=== PATIENT | male | born 1935 | race Caucasian/White ===

== ENCOUNTER 2016-09-06 19:43 | Emergency (ER) | payer MEDICARE, OTHER ==
[~2016-09-06 19:43] MED LIST: EPINEPHrine 1 MG/ML (MDV) 30 ML VIAL ONE; SODIUM CHLORIDE 0.9% (PF) 10 ML VIAL ONE
[2016-09-06 19:49] LABS: Glucose,Whole Blood 272 mg/dL (75-99)
--- NOTE | 2016-09-06 20:04 | ED ---
CPR HPI - General Stated Complaint: Cardiac Arrest Time Seen by Provider: 09/06/16 19:43 Source: EMS Mode of arrival: EMS Limitations: physical limitation - History of Present Illness Initial Comments: This patient is a 80-year-old man brought by EMS after he had what sounds like an arrest at home. The patient has history of COPD and is on home oxygen. He became unresponsive and family phoned EMS. EMS arrived to find the patient without any vital signs. There were no spontaneous inspiratory efforts. The patient had no detectable pulse or blood pressure. He was asystolic on the attached to cardiac rn. They instituted ACLS procedure. The patient had IV line, intubation, CPR, epinephrine, and they did find the patient developed ventricular fibrillation and they also provided defibrillation. There was no ROSC. Patient is of course not able to give any history. MD Complaint: found unresponsive (Already) Place: home Bystander CPR Performed: No Initial Findings in the Field: unresponsive, no pulse, other rhythm (asystole) ROSC in the Field: No Associated Injuries: No Treatments Prior to Arrival: intubation, chest compressions, defibrillated shocks #, epinephrine mgs #, sodium bicarbonate - Related Data Home Medications Medication Instructions Recorded Confirmed Albuterol Inhaler [Ventolin Hfa 2 puff INHALATION RT-QID PRN 11/26/14 02/26/16 Inhaler] Albuterol Nebulized [Ventolin 2.5 mg INHALATION RT-Q6H PRN 02/26/16 02/26/16 Nebulized] Amiodarone [Cordarone] 200 mg PO DAILY 02/26/16 02/26/16 Ensure 1 can PO BID-W/MEALS 02/26/16 02/26/16 Tiotropium [place] [Spiriva 2 puff INHALATION RT-DAILY 02/26/16 02/26/16 Respimat] Previous Rx's Medication Instructions Recorded Aspirin EC [Ecotrin Low Dose] 81 mg PO DAILY #30 tablet. 12/02/14 Furosemide [Lasix] 40 mg PO DAILY #30 tab 12/02/14 Lisinopril [Zestril] 2.5 mg PO DAILY #30 tab 12/02/14 Metoprolol Tartrate [Lopressor] 50 mg PO BID #60 tab 12/02/14 Apixaban [Eliquis] 5 mg PO BID #30 tab 02/29/16 HYDROcodone/APAP 7.5-325MG [[place] 1 tab PO Q6HR PRN #100 tab 02/29/16 7.5-325] Ipratropium-Albuterol Nebulize 3 ml INHALATION RT-QID ampul.neb 02/29/16 [Duoneb 0.5 mg-3 mg/3 ml Soln] Levofloxacin [Levaquin] 750 mg PO DAILY@1500 #5 tab 02/29/16 Potassium Chloride ER [K-Dur 20] 20 meq PO DAILY tab.er.prt 02/29/16 guaiFENesin [Mucinex] 600 mg PO Q12HR tablet.er 02/29/16 predniSONE 0 mg PO DIRECTED #40 tab 02/29/16 Allergies Allergy/AdvReac Type Severity Reaction Status Date / Time Penicillins Allergy Unknown Verified 02/26/16 16:20 Review of Systems ROS Statement: Those systems with pertinent positive or pertinent negative responses have been documented in the HPI. ROS Other: All systems not noted in ROS Statement are negative. Limitations: ROS unobtainable due to patients medical condition Past Medical History Past Medical History: Atrial Fibrillation, Coronary Artery Disease (CAD), Heart Failure (With a baseline ejection fraction of 30-35% and moderate degree of concentric left ventricular hypertrophy), COPD, Hyperlipidemia, Hypertension History of Any Multi-Drug Resistant Organisms: None Reported Past Surgical History: Adenoidectomy, Hernia Repair, Orthopedic Surgery, Tonsillectomy Additional Past Surgical History / Comment(s): Bilateral cataract surgery, tonsillectomy and adenoidectomy, ACDF, colonoscopy about 3 years ago. Past Anesthesia/Blood Transfusion Reactions: No Reported Reaction Past Psychological History: No Psychological Hx Reported Smoking Status: Current every day smoker (Patient used to smoke about pack every day currently smokes about half a pack every day .) Past Alcohol Use History: None Reported Past Drug Use History: None Reported - Past Family History Mother Family Medical History: Cancer (Mother at age 64 from bladder cancer.) Father Family Medical History: Myocardial Infarction ([place]) (Father at age of 71 from myocardial infarction.) Brother(s) Family Medical History: CVA/TIA (Patient had 8 brothers one of them from significant other one at age of 61.) Sister(s) Family Medical History: No Reported History (Patient has 2 sisters no major medical problems) Son(s) Family Medical History: No Reported History (Patient has 6 sons no major medical problems) Daughter(s) Family Medical History: No Reported History (Patient has 4 daughters no major medical problems) General Exam Limitations: physical limitation (Unresponsive) General appearance: other (Unresponsive) Head exam: Present: atraumatic, normocephalic Eye exam: Present: other (Pupils are midrange and fixed.) ENT exam: Present: other (There is an endotracheal tube present with bite block) Neck exam: Present: normal inspection, other (No palpable deformity or step-off) Respiratory exam: Present: rhonchi, other (There are few rhonchi with bagging through the endotracheal tube. There is no spontaneous inspiratory effort.) Cardiovascular Exam: Present: other (No detectable PMI. No palpable pulses. No detectable blood pressure. No cardiac sounds) GI/Abdominal exam: Present: soft. Absent: distended, tenderness, guarding, rebound Extremities exam: Present: other (No evidence of trauma. No obvious deformity) . Absent: pedal edema Back exam: Present: normal inspection, other (No obvious deformity or step-off) Neurological exam: Present: other (GCS is 3. No neurologic signs of life. No cranial nerve reflexes are deep tendon reflexes) Skin exam: Present: mottled. Absent: rash, diaphoretic, erythema, petechiae, pallor Course Vital Signs 09/06/16 20:12 Pulse Rate [ 0 L Femoral] Respiratory 12 Rate - Reevaluation(s) Reevaluation #1: 09/06/16 21:54 I discussed the case with Dr. ray marie, who will sign the certificate. I discussed the case with the medical physicist who will release the patient's body for disposition. The time of was 8:01 PM. Medical Decision Making - Medical Decision Making Patient is a 80-year-old man with history of COPD brought after he had what sounds like cardiopulmonary arrest at home. We did continue the ACLS protocol. After continuing the CPR for a period of time did note that there was subcutaneous emphysema developing particularly along the right side of the patient's neck. I did perform a needle thoracostomy initially on the right which did result in a small amount of air release, and then on the left which resulted in what appeared to be pleural fluid drainage. There was no change in the monitor appearance. ACLS protocol was continued see the - Lab Data Lab Results 09/06/16 Range/Units 19:46 POC Glucose (mg/dL) 272 H (75-99) mg/dL POC Glu Product Marketer ID Hui Jacome Critical Care Time Critical Care Time: Yes (30 minutes) Critical Care Time: Care time spent in direct care of the patient, speaking with family, speaking with medical physicist, documentation. Disposition Clinical Impression: Cardiopulmonary arrest Disposition: Condition: Undetermined Referrals: Lalit Cruz MD [Primary Care Provider] - 1-2 days Preliminary Cause of : Cardiopulmonary arrest
[2016-09-06 21:30] VITALS: PULSE 0; RESP 12
== END 2016-09-06 21:54 | disposition expired ==
LOC: EC 19:43
DX: I46.9 Cardiac arrest, cause unspecified (principal); I25.10 Atherosclerotic heart disease of native coronary artery without angina pectoris; I50.9 Heart failure, unspecified; I10 Essential (primary) hypertension; I48.91 Unspecified atrial fibrillation; F17.200 Nicotine dependence, unspecified, uncomplicated; Z79.899 Other long term (current) drug therapy; Z88.0 Allergy status to penicillin; Z82.49 Family history of ischemic heart disease and other diseases of the circulatory system
CPT/HCPCS: 99285; 92950; 36415; J0171